=== PATIENT | female | born 1990 | race Caucasian/White ===

== ENCOUNTER 2020-12-15 06:00 | Inpatient (IN) ==
[2020-12-15] MEDS ORDERED: LACTATED RINGERS 1,000 ML IV ONE (06:09)
[2020-12-15] MEDS ORDERED: ONDANSETRON 4 MG/2 ML VIAL IV PRN ×2 (06:09→11:24)
[2020-12-15] MEDS ORDERED: LACTATED RINGERS 1,000 ML IV SCH ×2 (06:30→11:30)
[2020-12-15 07:10] LABS: Basophils % 0.4 % (0.0-0.8); Eosinophils % 0.2 % (0.00-10.9); Hematocrit 33.3 VOL% (35.7-47.0); Hemoglobin 11.4 GM/DL (12.0-16.0); Immature Granulocytes % 3.8 %; Immature Granulocytes Absolute 0.38 #; Lymphocytes # 1.5 10*3/uL (1.4-4.0); Lymphocytes % 14.8 % (21.3-54.2); Mean Corpuscular HGB Conc 34.2 GM/DL (32-36); Mean Corpuscular Volume 94.1 FL (87-102); Mean Platelet Volume 10.4 FL (9.6-12.0); Monocytes % 10.1 % (1.7-12.7); Neutrophils % 70.7 % (38.7-73.9); Platelet Count 181 T/CUMM (130-400); Red Blood Count 3.54 MC/CUMM (3.8-5.5); Red Cell Distribution Width 13.6 % (9.3-17.3); White Blood Count 10.1 T/CUMM (4-12)
[2020-12-15 07:51] LABS: Albumin 2.5 G/DL (3.4-5.0); Bilirubin,Total 1.4 MG/DL (0.2-1.0); Calcium 8.7 MG/DL (8.5-10.1); Osmolality,Calculated 274.8 MOS/KG (273-304); Potassium 3.6 MMOL/L (3.5-5.1); Total Protein 6.2 G/DL (6.4-8.3)
[2020-12-15] MEDS ORDERED: ONDANSETRON 4 MG/2 ML VIAL IV ONE (08:29)
[2020-12-15] MEDS ORDERED: ePHEDrine 50 MG/ML VIAL IV PRN (08:29)
[2020-12-15] MEDS ORDERED: diphenhydrAMINE 50 MG/1 ML VIAL IV PRN ×2 (08:29)
[2020-12-15] MEDS ORDERED: CITRIC ACID/SODIUM CITRATE 30 ML UDCUP PO ONE (08:29)
[2020-12-15] MEDS ORDERED: NALOXONE 0.4 MG/ML VIAL IV PRN (08:29)
[2020-12-15] MEDS ORDERED: FAMOTIDINE 20 MG/2 ML VIAL IV ONE (08:29)
[2020-12-15] MEDS ORDERED: LACTATED RINGERS 250 ML IV PRN (08:29)
[2020-12-15] MEDS ORDERED: hydrOXYzine HCL 25 MG/1 ML VIAL IM PRN (08:29)
[2020-12-15] MEDS ORDERED: PROMETHAZINE 25 MG/1 ML VIAL IM ONE (08:29)
[2020-12-15] MEDS ORDERED: fentaNYL 2 MCG/ROPIV 0.2% EPID 100 ML EPIDURAL SCH (08:30)
[2020-12-15] MEDS ORDERED: CLINDAMYCIN INJ 900 MG in PREMIX 1 EACH IV ONE (10:03)
[2020-12-15] MEDS ORDERED: LIDOCAINE MPF 2% /EPI 20 ML VIAL ONE (10:12)
[2020-12-15] MEDS ORDERED: ONDANSETRON 4 MG/2 ML VIAL ONE (10:13)
[2020-12-15] MEDS ORDERED: fentaNYL 100 MCG/2 ML VIAL ONE (10:29)
[2020-12-15] MEDS ORDERED: PHENYLEPHRINE 1 MG/10 ML SYRINGE IV ONE (10:44)
[2020-12-15] MEDS ORDERED: CARBOPROST TROMETHAMINE 250 MCG/ML AMP IM ONE (10:53)
[2020-12-15] MEDS ORDERED: miSOPROStoL 200 MCG TABLET ONE (10:53)
[2020-12-15] MEDS ORDERED: METHYLERGONOVINE 0.2 MG/1 ML AMP ONE (10:53)
[2020-12-15] MEDS ORDERED: TRANEXAMIC ACID 1,000 MG/10 ML VIAL ONE (10:53)
[2020-12-15] MEDS ORDERED: OXYTOCIN/LR 20 UNIT/1,000 ML BAG IV ONE ×2 (10:55→11:24)
[2020-12-15] MEDS ORDERED: METHYLERGONOVINE 0.2 MG/1 ML AMP IM ONE (11:00)
[2020-12-15] MEDS ORDERED: ACETAMINOPHEN 1,000 MG/100 ML VIAL IV ONE (11:02)
[2020-12-15 11:09] LABS: Cord Arterial Blood HCO3 21.6 MMOL/L
[2020-12-15] MEDS ORDERED: MORPHINE 10 MG/10 ML VIAL ONE (11:11)
[2020-12-15 11:12] LABS: Cord Venous Blood HCO3 23.3 MMOL/L; Cord Venous Blood PCO2 43.8 MMHG; Cord Venous Blood PO2 31.6
[2020-12-15] MEDS ORDERED: RHO(D) IMMUNE GLOBULIN 300 MCG SYRINGE IM ONE ×2 (11:24→12:00)
[2020-12-15] MEDS ORDERED: ACETAMINOPHEN 325 MG TABLET PO PRN (11:24)
[2020-12-15] MEDS ORDERED: IBUPROFEN 800 MG TABLET PO PRN (11:24)
[2020-12-15] MEDS ORDERED: SIMETHICONE CHEW 80 MG TABLET PO PRN (11:24)
[2020-12-15] MEDS ORDERED: MAGNESIUM HYDROXIDE SUSP 30 ML UDCUP PO PRN (11:24)
[2020-12-15] MEDS ORDERED: oxyCODONE/ACETAMINOPHEN 5-325 MG TABLET PO PRN (11:27)
[2020-12-15] MEDS: ACETAMINOPHEN 500 MG TABLET PO SCH ×3 (12:30→23:45)
[2020-12-15 12:46] LABS: Bilirubin,Urine Negative (Negative); Blood, Urine Negative (Negative); Glucose,Urine (UA) Negative (Negative); Ketones,Urine 80 mg/dL (Negative); Mucus,Urine Few /LPF (Occasional); Nitrite,Urine Negative (Negative); Protein,Urine Negative; RBC,Urine <1 /HPF (0-4); Urine Appearance CLEAR (Clear); Urine Color Yellow (Yellow); Urine Specific Gravity 1.015 (1.001-1.035); Urine Urobilinogen < 2.0 EU/DL (0.2-1.0); WBC,Urine 1 /HPF (0-6)
[2020-12-15] MEDS: CLINDAMYCIN INJ 900 MG in PREMIX 1 EACH IV SCH (17:26)
[2020-12-15 17:30] LABS: Basophils % 0.3 % (0.0-0.8); Eosinophils % 0.2 % (0.00-10.9); Hematocrit 29.7 VOL% (35.7-47.0); Hemoglobin 10.5 GM/DL (12.0-16.0); Immature Granulocytes % 1.3 %; Immature Granulocytes Absolute 0.14 #; Lymphocytes # 1.6 10*3/uL (1.4-4.0); Lymphocytes % 14.7 % (21.3-54.2); Mean Corpuscular HGB Conc 35.4 GM/DL (32-36); Mean Corpuscular Volume 92.2 FL (87-102); Mean Platelet Volume 10.5 FL (9.6-12.0); Monocytes % 7.9 % (1.7-12.7); Neutrophils % 75.6 % (38.7-73.9); Platelet Count 168 T/CUMM (130-400); Red Blood Count 3.22 MC/CUMM (3.8-5.5); Red Cell Distribution Width 13.4 % (9.3-17.3)
[2020-12-15] MEDS: KETOROLAC 30 MG/1 ML VIAL IV SCH (18:07)
[2020-12-16] MEDS: KETOROLAC 30 MG/1 ML VIAL IV SCH (00:13)
[2020-12-16] MEDS: CLINDAMYCIN INJ 900 MG in PREMIX 1 EACH IV SCH (01:52)
[2020-12-16] MEDS: DOCUSATE SODIUM 100 MG CAPSULE PO SCH ×3 (02:24→21:23)
[2020-12-16 05:24] LABS: Basophils % 0.2 % (0.0-0.8); Eosinophils % 0.3 % (0.00-10.9); Hematocrit 30.4 VOL% (35.7-47.0); Hemoglobin 10.3 GM/DL (12.0-16.0); Immature Granulocytes % 1.5 %; Immature Granulocytes Absolute 0.13 #; Lymphocytes # 1.5 10*3/uL (1.4-4.0); Lymphocytes % 17.7 % (21.3-54.2); Mean Corpuscular HGB Conc 33.9 GM/DL (32-36); Mean Corpuscular Volume 94.7 FL (87-102); Mean Platelet Volume 10.5 FL (9.6-12.0); Monocytes % 10.3 % (1.7-12.7); Platelet Count 171 T/CUMM (130-400); Red Blood Count 3.21 MC/CUMM (3.8-5.5); Red Cell Distribution Width 13.7 % (9.3-17.3); White Blood Count 8.6 T/CUMM (4-12)
[2020-12-16] MEDS: IBUPROFEN 800 MG TABLET PO PRN ×2 (08:02→16:50)
[2020-12-16] MEDS: MULTIVITAMIN (PRENATAL) TABLET PO SCH (08:03)
[2020-12-16] MEDS: ACETAMINOPHEN 500 MG TABLET PO PRN ×2 (13:40→23:43)
[2020-12-17] MEDS: DOCUSATE SODIUM 100 MG CAPSULE PO SCH (08:01)
[2020-12-17] MEDS: IBUPROFEN 800 MG TABLET PO PRN (08:02)
[2020-12-17] MEDS: MULTIVITAMIN (PRENATAL) TABLET PO SCH (08:02)
[2020-12-17 10:25] VITALS: BP 108/68
== END 2020-12-17 13:20 | disposition home or self-care (01) | DRG 786 ==
LOC: N.LD 06:00 → N.OB 15:30
PROVIDERS: ADMIT Obstetrics & Gynecology; ATTEND Obstetrics & Gynecology
PROC: LDCSECT (ICD-10-PCS; 2020-12-15 07:00)

== ENCOUNTER 2022-07-16 05:32 | Inpatient (IN) ==
[2022-07-16] MEDS ORDERED: ACETAMINOPHEN 500 MG TABLET PO PRN (05:41)
[2022-07-16] MEDS ORDERED: miSOPROStoL 200 MCG TABLET RECTAL PRN (05:41)
[2022-07-16] MEDS ORDERED: LACTATED RINGERS 500 ML IV PRN (05:41)
[2022-07-16] MEDS ORDERED: METHYLERGONOVINE 0.2 MG/1 ML AMP IM PRN (05:41)
[2022-07-16] MEDS ORDERED: CARBOPROST TROMETHAMINE 250 MCG/ML AMP IM PRN (05:41)
[2022-07-16] MEDS ORDERED: ONDANSETRON 4 MG/2 ML VIAL IV PRN (05:41)
[2022-07-16] MEDS ORDERED: BUTORPHANOL 2 MG/ML VIAL IV PRN (05:41)
[2022-07-16] MEDS ORDERED: BUTORPHANOL 1 MG/ML VIAL IV PRN (05:41)
[2022-07-16] MEDS ORDERED: TRANEXAMIC ACID 1,000 MG in SODIUM CHLORIDE 0.9% 100 ML IV PRN (05:41)
[2022-07-16] MEDS ORDERED: OXYTOCIN/LR 20 UNIT/1,000 ML BAG IV ONE ×2 (05:41→21:01)
[2022-07-16] MEDS ORDERED: MEPERIDINE 50 MG/1 ML VIAL IV PRN (05:50)
[2022-07-16] MEDS ORDERED: OXYTOCIN/LR 20 UNIT/1,000 ML BAG IV SCH (06:30)
[2022-07-16 06:47] LABS: Basophils % 0.6 % (0.0-0.8); Eosinophils # 0.1 10*3/uL (0.0-0.87); Eosinophils % 1.2 % (0.00-10.9); Hematocrit 33.1 VOL% (35.7-47.0); Hemoglobin 11.2 GM/DL (12.0-16.0); Immature Granulocytes % 1.9 %; Immature Granulocytes Absolute 0.13 #; Lymphocytes # 1.3 10*3/uL (1.4-4.0); Lymphocytes % 18.8 % (21.3-54.2); Mean Corpuscular HGB Conc 33.8 GM/DL (32-36); Mean Corpuscular Volume 89.7 FL (87-102); Mean Platelet Volume 10.6 FL (9.6-12.0); Monocytes # 0.6 10*3/uL (0.11-0.8); Monocytes % 8.6 % (1.7-12.7); Neutrophils % 68.9 % (38.7-73.9); Platelet Count 170 T/CUMM (130-400); Red Blood Count 3.69 MC/CUMM (3.8-5.5); Red Cell Distribution Width 13.1 % (9.3-17.3); White Blood Count 6.8 T/CUMM (4-12)
[2022-07-16 07:06] LABS: Albumin 2.3 G/DL (3.4-5.0); Bilirubin,Total 0.5 MG/DL (0.20-1.00); Calcium 8.7 MG/DL (8.5-10.1); Osmolality,Calculated 275.5 MOS/KG (273-304); Potassium 3.6 MMOL/L (3.5-5.1); Total Protein 6.1 G/DL (6.4-8.2)
[2022-07-16] MEDS: CLINDAMYCIN INJ 900 MG/50 ML PREMIX IV SCH ×2 (08:00→16:14)
[2022-07-16] MEDS: LACTATED RINGERS 1,000 ML IV SCH ×2 (09:57→18:18)
[2022-07-16] MEDS ORDERED: DEXTROSE 5% LACTATED RINGERS 1,000 ML IV SCH (17:00)
[2022-07-16] MEDS ORDERED: FAMOTIDINE 20 MG/2 ML VIAL IV ONE (17:11)
[2022-07-16] MEDS ORDERED: ONDANSETRON 4 MG/2 ML VIAL IV ONE (17:11)
[2022-07-16] MEDS ORDERED: hydrOXYzine HCL 25 MG/1 ML VIAL IM PRN (17:11)
[2022-07-16] MEDS ORDERED: diphenhydrAMINE 50 MG/1 ML VIAL IV PRN ×2 (17:11)
[2022-07-16] MEDS ORDERED: CITRIC ACID/SODIUM CITRATE 30 ML UDCUP PO ONE (17:11)
[2022-07-16] MEDS ORDERED: ePHEDrine 50 MG/ML VIAL IV PRN (17:11)
[2022-07-16] MEDS ORDERED: PROMETHAZINE 25 MG/1 ML VIAL IM ONE (17:11)
[2022-07-16] MEDS ORDERED: NALOXONE 0.4 MG/ML VIAL IV PRN (17:11)
[2022-07-16] MEDS ORDERED: LACTATED RINGERS 1,000 ML IV SCH (17:30)
[2022-07-16] MEDS ORDERED: fentaNYL 2 MCG/ROPIV 0.2% EPID 100 ML EPIDURAL SCH (17:30)
[2022-07-16] MEDS ORDERED: TRANEXAMIC ACID 1,000 MG/10 ML VIAL ONE (19:56)
[2022-07-16] MEDS ORDERED: miSOPROStoL 200 MCG TABLET ONE (19:56)
[2022-07-16] MEDS ORDERED: SODIUM CHLORIDE 0.9% 0 ML IV ONE (19:56)
[2022-07-16] MEDS ORDERED: CARBOPROST TROMETHAMINE 250 MCG/ML AMP IM ONE (19:57)
[2022-07-16] MEDS ORDERED: METHYLERGONOVINE 0.2 MG/1 ML AMP ONE (19:57)
[2022-07-16] MEDS ORDERED: oxyCODONE/ACETAMINOPHEN 5-325 MG TABLET PO PRN ×2 (21:01)
[2022-07-16] MEDS ORDERED: DIPH/TET/ACEL PERT BOOSTER VACCINE 0.5 ML VIAL IM ONE (21:01)
[2022-07-16] MEDS ORDERED: HYDROCORTISONE 2.5% RECTAL CREAM 30 GM TUBE TOP PRN (21:01)
[2022-07-16] MEDS ORDERED: ACETAMINOPHEN 325 MG TABLET PO PRN (21:01)
[2022-07-16] MEDS ORDERED: WITCH HAZEL PADS 100/JAR TOP PRN (21:01)
[2022-07-16] MEDS ORDERED: RHO(D) IMMUNE GLOBULIN 300 MCG SYRINGE IM ONE (21:01)
[2022-07-16] MEDS ORDERED: MEASLES/MUMPS/RUBELLA VACCINE 0.5 ML VIAL SUBCUT ONE (21:01)
[2022-07-16] MEDS ORDERED: LANOLIN 50% CREAM 0.3 OZ TUBE TOP PRN (21:01)
[2022-07-16] MEDS ORDERED: IBUPROFEN 800 MG TABLET PO PRN (21:01)
[2022-07-16] MEDS ORDERED: BISACODYL 10 MG SUPP RECTAL PRN (21:01)
[2022-07-16] MEDS ORDERED: BENZOCAINE 20%/MENTHOL 0.5% SPRAY 56 GM CAN TOP PRN (21:01)
[2022-07-16 21:03] LABS: Cord Venous Blood HCO3 21.2 MMOL/L; Cord Venous Blood PCO2 43.8 MMHG; Cord Venous Blood PO2 28.9
[2022-07-17 06:00] LABS: Basophils % 0.3 % (0.0-0.8); Eosinophils % 0.4 % (0.00-10.9); Hematocrit 30.4 VOL% (35.7-47.0); Hemoglobin 10.5 GM/DL (12.0-16.0); Immature Granulocytes % 0.8 %; Immature Granulocytes Absolute 0.08 #; Lymphocytes # 1.4 10*3/uL (1.4-4.0); Mean Corpuscular HGB Conc 34.5 GM/DL (32-36); Mean Corpuscular Volume 89.4 FL (87-102); Monocytes # 0.7 10*3/uL (0.11-0.8); Monocytes % 6.9 % (1.7-12.7); Neutrophils % 77.6 % (38.7-73.9); Platelet Count 199 T/CUMM (130-400); Red Cell Distribution Width 13.1 % (9.3-17.3); White Blood Count 9.9 T/CUMM (4-12)
[2022-07-17] MEDS: DOCUSATE SODIUM 100 MG CAPSULE PO SCH ×2 (08:57→21:14)
[2022-07-17] MEDS: MULTIVITAMIN (PRENATAL) TABLET PO SCH (08:57)
[2022-07-18] MEDS: MULTIVITAMIN (PRENATAL) TABLET PO SCH (09:51)
[2022-07-18] MEDS: DOCUSATE SODIUM 100 MG CAPSULE PO SCH (09:51)
[2022-07-18 11:38] VITALS: BP 91/51
== END 2022-07-18 12:35 | disposition home or self-care (01) | DRG 807 ==
LOC: N.LD 05:32 → N.OB 23:05
PROVIDERS: ADMIT Obstetrics & Gynecology; ATTEND Obstetrics & Gynecology